=== PATIENT | female | born 1985 | race Caucasian/White ===

== ENCOUNTER 2023-02-21 08:22 | Emergency (ER) | payer SELFPAY ==
[2023-02-21 08:50] VITALS: BMI 22.6
[2023-02-21] MEDS ORDERED: METOCLOPRAMIDE HCL INJECTION 10 MG/2 ML VIAL IVPB ONE (08:52)
[2023-02-21] MEDS ORDERED: ACETAMINOPHEN 1000 MG/100 ML BAG IVPB ONE (08:52)
[2023-02-21] MEDS ORDERED: SODIUM CHLORIDE 0.9% 500 ML INFUS.BAG IV ONE (08:52)
[2023-02-21] MEDS ORDERED: METOCLOPRAMIDE HCL INJECTION 10 MG/2 ML VIAL ONE (08:58)
[2023-02-21] MEDS ORDERED: ACETAMINOPHEN INJECTION 100 ML IVPB ONE (08:58)
[2023-02-21 09:33] LABS: BASO % 0.3 % (0-2.0); EOS % 0.9 % (0-4.5); HEMATOCRIT 41.7 % (32.4-45.2); HEMOGLOBIN 14.1 GM/dL (10.7-15.3); LYMPH % 18.7 % (8-40); MCH 30.6 pg (25.7-33.7); MCHC 33.7 g/dl (32.0-36.0); MEAN CELL VOLUME 90.8 fl (80-96); MEAN PLT VOLUME 7.7 fl (7.5-11.1); MONO % 7.4 % (3.8-10.2); NEUT % 72.7 % (42.8-82.8); PLATELET COUNT 308 10^3/uL (134-434); RDW 13.3 % (11.6-15.6); WHITE BLOOD COUNT 10.5 K/mm3 (4.0-10.0)
[2023-02-21 09:55] LABS: CALCIUM 9.4 mg/dL (8.5-10.1); POTASSIUM 4.3 mmol/L (3.5-5.1)
[2023-02-21 09:57] LABS: ALBUMIN 4.2 g/dl (3.4-5.0); BLOOD UREA NITROGEN 11.7 mg/dL (7-18); MAGNESIUM 2.2 mg/dL (1.8-2.4)
[2023-02-21 09:59] LABS: CREATININE 0.8 mg/dL (0.55-1.3)
[2023-02-21 10:01] LABS: BILIRUBIN,TOTAL 1.2 mg/dL (0.2-1)
[2023-02-21 11:45] VITALS: BP 131/96; PULSE 87; RESP 12; TEMP 97.9
== END 2023-02-21 11:59 | disposition home or self-care (01) ==
LOC: JER 08:22
PROC: 3E033NZ Introduction of Analgesics, Hypnotics, Sedatives into Peripheral Vein, Percutaneous Approach (ICD-10-PCS; principal; 2023-02-21)
PROC: 3E033GC Introduction of Other Therapeutic Substance into Peripheral Vein, Percutaneous Approach (ICD-10-PCS; 2023-02-21)
DX: M54.2 Cervicalgia (principal); R51.9 Headache, unspecified; R42 Dizziness and giddiness; Z20.822 Contact with and (suspected) exposure to COVID-19
CPT/HCPCS: 0241U-QW; 36415; 70450-TC; 80053; 83735; 84484; 84703; 85025; 93005; 93010; 99285-25

== ENCOUNTER 2023-07-25 20:14 | Emergency (ER) | payer OTHER ==
[2023-07-25 20:25] VITALS: BMI 28.2
[2023-07-25] MEDS ORDERED: ONDANSETRON 4 MG/2 ML VIAL ONE (21:52)
[2023-07-25] MEDS ORDERED: ACETAMINOPHEN INJECTION 100 ML IVPB ONE (21:52)
[2023-07-25 21:57] LABS: HEMATOCRIT 41.9 % (32.4-45.2); HEMOGLOBIN 13.9 GM/dL (10.7-15.3); MCH 30.9 pg (25.7-33.7); MCHC 33.3 g/dl (32.0-36.0); MEAN PLT VOLUME 7.4 fl (7.5-11.1); PLATELET COUNT 256 10^3/uL (134-434); RBC 4.51 M/mm3 (3.60-5.2); RDW 13.9 % (11.6-15.6); WHITE BLOOD COUNT 12.8 K/mm3 (4.0-10.0)
[2023-07-25] MEDS: LACTATED RINGERS SOLUTION 1000 ML INFUS.BAG IV ONE (22:03)
[2023-07-25] MEDS: ACETAMINOPHEN 1000 MG/100 ML BAG IVPB ONE (22:03)
[2023-07-25] MEDS: ONDANSETRON 4 MG/2 ML VIAL IVPUSH ONE (22:04)
[2023-07-25 22:17] LABS: POTASSIUM 4.1 mmol/L (3.5-5.1)
[2023-07-25 22:19] LABS: BLOOD UREA NITROGEN 16.5 mg/dL (7-18)
[2023-07-25 22:20] LABS: ALBUMIN 4.4 g/dl (3.4-5.0); MAGNESIUM 2.1 mg/dL (1.8-2.4)
[2023-07-25 22:23] LABS: CREATININE 0.8 mg/dL (0.55-1.3)
[2023-07-25 22:24] LABS: BILIRUBIN,TOTAL 1.2 mg/dL (0.2-1); TOT PROT 7.8 g/dl (6.4-8.2)
[2023-07-25 23:13] LABS: ANISOCYTOSIS 0; MACROCYTOSIS 0
[2023-07-25 23:47] VITALS: BP 124/67; PULSE 100; RESP 18; TEMP 98.6
== END 2023-07-26 00:28 | disposition home or self-care (01) ==
LOC: JER 20:14
PROC: 3E033NZ Introduction of Analgesics, Hypnotics, Sedatives into Peripheral Vein, Percutaneous Approach (ICD-10-PCS; principal; 2023-07-25)
PROC: 3E033GC Introduction of Other Therapeutic Substance into Peripheral Vein, Percutaneous Approach (ICD-10-PCS; 2023-07-25)
DX: R10.9 Unspecified abdominal pain (principal); R11.2 Nausea with vomiting, unspecified; R19.7 Diarrhea, unspecified; Z20.822 Contact with and (suspected) exposure to COVID-19
CPT/HCPCS: 0241U-QW; 36415; 80053; 83690; 83735; 84703; 85025; 99284-25; J0131

== ENCOUNTER 2023-09-25 10:04 | Emergency (ER) | payer OTHER ==
[2023-09-25 10:12] VITALS: BP 171/96; PULSE 95; RESP 18; TEMP 98; BMI 28.2
[2023-09-25 12:08] LABS: THROAT:GRP A STREP NOT DETECTED (NOTDETECTED)
== END 2023-09-25 12:28 | disposition home or self-care (01) ==
LOC: JERFT 10:04
DX: K11.20 Sialoadenitis, unspecified (principal); Z20.822 Contact with and (suspected) exposure to COVID-19
CPT/HCPCS: 0241U-QW; 87651; 99283-25

== ENCOUNTER 2023-11-19 11:11 | Emergency (ER) | payer OTHER ==
[2023-11-19] MEDS: ACETAMINOPHEN 1000 MG/100 ML BAG IVPB ONE (11:35)
[2023-11-19] MEDS ORDERED: ONDANSETRON 4 MG/2 ML VIAL ONE (11:38)
[2023-11-19] MEDS: SODIUM CHLORIDE 0.9% 500 ML INFUS.BAG IV ONE ×2 (11:48→12:50)
[2023-11-19] MEDS: ONDANSETRON 4 MG/2 ML VIAL IVPUSH ONE (11:48)
[2023-11-19] MEDS ORDERED: ACETAMINOPHEN INJECTION 100 ML IVPB ONE (11:52)
[2023-11-19 11:58] LABS: VENOUS BASE EXCESS -1.4 mmol/L (-2-2); VENOUS O2 SATURATION 40.7 % (70-80); VENOUS PCO2 40.2 mmHg (38-52); VENOUS PH 7.385 (7.310-7.410)
[2023-11-19 12:05] LABS: HEMATOCRIT 38.2 % (32.4-45.2); HEMOGLOBIN 12.7 GM/dL (10.7-15.3); MCH 30.3 pg (25.7-33.7); MCHC 33.3 g/dl (32.0-36.0); MEAN CELL VOLUME 90.9 fl (80-96); MEAN PLT VOLUME 7.5 fl (7.5-11.1); PLATELET COUNT 324 10^3/uL (134-434); RDW 14.1 % (11.6-15.6); WHITE BLOOD COUNT 11.8 K/mm3 (4.0-10.0)
[2023-11-19 12:17] LABS: CHLORIDE 106 mmol/L (98-107); POTASSIUM 4.4 mmol/L (3.5-5.1); SODIUM 139 mmol/L (136-145)
[2023-11-19 12:21] LABS: ALBUMIN 4.6 g/dl (3.4-5.0); ANION GAP 7 mmol/L (4-13); BLOOD UREA NITROGEN 10.9 mg/dL (7-18); CALCIUM 9.4 mg/dL (8.5-10.1); CO2 25 mmol/L (21-32); GLUCOSE,RANDOM 114 mg/dL (74-106)
[2023-11-19 12:24] LABS: CREATININE 0.7 mg/dL (0.55-1.3); SGOT/AST 15 U/L (15-37); SGPT/ALT 17 U/L (13-61)
[2023-11-19 12:25] LABS: BILIRUBIN,TOTAL 0.6 mg/dL (0.2-1)
[2023-11-19 12:26] LABS: TOT PROT 8.6 g/dl (6.4-8.2)
[2023-11-19 12:27] LABS: ALK PHOS 83 U/L (45-117)
[2023-11-19 12:33] VITALS: TEMP 98.3; BMI 28.0
[2023-11-19 12:37] LABS: ANISOCYTOSIS 0; MACROCYTOSIS 0
[2023-11-19 14:52] LABS: EPI CELLS 22 /uL (0-25.1); HYALINE CASTS 0 /uL (0-3.1); PH,URINE 7.5 (5.0-8.0); URINE APPEARANCE CLEAR; URINE BACTERIA 398 /uL (0-1359); URINE BILIRUBIN NEGATIVE (NEGATIVE); URINE COLOR YELLOW; URINE GLUCOSE (UA) NEGATIVE (NEGATIVE); URINE KETONE NEGATIVE (NEGATIVE); URINE LEUK ESTERASE NEGATIVE (NEGATIVE); URINE NITRITE NEGATIVE (NEGATIVE); URINE PROTEIN NEGATIVE (NEGATIVE); URINE RBC 13 /uL (0-23.9); URINE UROBILINOGEN 0.2 mg/dL (0.2-1.0); URINE WBC 2 /uL (0-25.8)
[2023-11-19 15:35] VITALS: BP 141/91; PULSE 88; RESP 18
== END 2023-11-19 15:35 | disposition home or self-care (01) ==
LOC: JER 11:11
PROC: 3E033NZ Introduction of Analgesics, Hypnotics, Sedatives into Peripheral Vein, Percutaneous Approach (ICD-10-PCS; principal; 2023-11-19)
PROC: 3E033GC Introduction of Other Therapeutic Substance into Peripheral Vein, Percutaneous Approach (ICD-10-PCS; 2023-11-19)
DX: K52.9 Noninfective gastroenteritis and colitis, unspecified (principal); G43.909 Migraine, unspecified, not intractable, without status migrainosus; R11.2 Nausea with vomiting, unspecified
CPT/HCPCS: 36415; 80053; 80307; 81003; 82803; 83690; 84703; 85025; 93005; 93010; 99284-25; J0131

== ENCOUNTER 2023-12-02 10:40 | Emergency (ER) | payer OTHER ==
[2023-12-02 10:45] VITALS: BP 178/108; PULSE 96; RESP 18; TEMP 98.5; BMI 28.0
== END 2023-12-02 12:10 | disposition home or self-care (01) ==
LOC: JERFT 10:40
DX: U07.1 COVID-19 (principal); R51.9 Headache, unspecified; R09.81 Nasal congestion; M79.10 Myalgia, unspecified site; R05.9 Cough, unspecified; R09.82 Postnasal drip
CPT/HCPCS: 0241U-QW; 99283-25

== ENCOUNTER 2024-02-12 19:39 | Emergency (ER) | payer OTHER ==
[2024-02-12 19:46] VITALS: RESP 18; TEMP 98.6; BMI 28.2
[2024-02-12] MEDS ORDERED: LIDOCAINE 4% PATCH TP ONE (20:35)
[2024-02-12] MEDS ORDERED: KETOROLAC TROMETHAMINE 30 MG/1 ML VIAL ONE (20:35)
[2024-02-12] MEDS: LIDOCAINE 4% PATCH TP ONE (20:40)
[2024-02-12] MEDS: KETOROLAC TROMETHAMINE 30 MG/1 ML VIAL IM ONE (20:41)
[2024-02-12 21:53] VITALS: BP 157/110; PULSE 100
[2024-02-12] MEDS ORDERED: LIDOCAINE PATCH REMOVAL MC SCH (22:00)
[2024-02-12] MEDS ORDERED: ACETAMINOPHEN 500 MG TABLET (FP) ONE (22:38)
[2024-02-12] MEDS: ACETAMINOPHEN 500 MG TABLET (FP) PO ONE (22:48)
== END 2024-02-12 22:51 | disposition home or self-care (01) ==
LOC: JER 19:39
PROC: 2W3RX1Z Immobilization of Left Lower Leg using Splint (ICD-10-PCS; principal; 2024-02-12)
PROC: 3E0133Z Introduction of Anti-inflammatory into Subcutaneous Tissue, Percutaneous Approach (ICD-10-PCS; 2024-02-12)
DX: S92.142A Displaced dome fracture of left talus, initial encounter for closed fracture (principal); W10.8XXA Fall (on) (from) other stairs and steps, initial encounter
CPT/HCPCS: 70450-TC; 73590-TC-LT-FY; 73610-TC-LT-FY; 73630-TC-LT; 99284-25

== ENCOUNTER 2024-05-29 08:52 | Emergency (ER) | payer OTHER ==
[2024-05-29 08:59] VITALS: BP 155/109; PULSE 98; RESP 16; TEMP 98.6; BMI 28.0
== END 2024-05-29 11:44 | disposition home or self-care (01) ==
LOC: JERFT 08:52
DX: J02.9 Acute pharyngitis, unspecified (principal); R05.9 Cough, unspecified
CPT/HCPCS: 87651; 99283-25